=== PATIENT | male | born 1970 | race Caucasian/White ===

== ENCOUNTER 2024-01-02 18:32 | Inpatient (IN) | payer MEDICARE, MEDICAID, SELFPAY ==
[2024-01-02] VITALS (47 sets, daily range): BP systolic 83–120; BP diastolic 50–75; PULSE 78–150; RESP 7–22; TEMP 36–37.1; O2SAT 96–100
--- NOTE | 2024-01-02 18:30 | RT.EKG_ITS ---
APPROVED REPORT Exam: Resting ECG Reason for Exam: Sick Patient Location: E HR:142 bpm ECG Measurements Heart Rate 142 AXIS WV 121 P 75 QRSd 94 QRS 92 QT 276 T 16 QTc 428 Conclusion Sinus tachycardia...rate> 99 Ventricular premature complex...V complex w/ short R-R interval sinus tachycardia, normal axis, normal intervals
[2024-01-02] MEDS: Lactated Ringers 1,000 ML 1000 ML IV ×2 (19:02→21:14)
[2024-01-02 19:09] LABS: BE (Venous) -4 mmol/L (-2-3); HCO3 (Venous) 19 mmol/L (23-28); O2 Sat (Venous) 64 %; TCO2 (Venous) 19 mmol/L (24-29); pCO2 (Venous) 27 mmHg (41-51); pH (Venous) 7.47 (7.31-7.41); pO2 (Venous) 36 mmHg
[2024-01-02 19:11] LABS: Abs Immature Grans 0.11 10^3/uL (0.0-0.06); HCT 26.6 % (40.0-50.0); HGB 7.3 g/dL (13.5-17.5); MCH 24.6 pg (27.0-33.0); MCHC 27.4 % (32.0-36.0); MCV 90 fL (80-95); MPV 10.1 fL (8.0-11.0); Platelet Count 241 10^3/uL (130-400); RBC 2.97 10^6/uL (4.36-5.78); RDW 21.1 % (11.8-14.1); RDW-SD 68.6 fL; WBC 13.32 10^3/uL (4.4-10.8)
[2024-01-02 19:12] LABS: Lactate 3.8 mmol/L (0.6-1.4)
[2024-01-02] MEDS: CEFEPIME 2 GM in Normal Saline 100 ML IVPB ×2 (19:15→23:23)
[2024-01-02] MEDS: ACETAMINOPHEN 1,000 MG/100 ML BTL 400 MG IVPB (19:20)
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
[2024-01-02 19:24] LABS: INR 1.5 (0.9-1.1); Prothrombin Time 14.3 sec (9.1-11.1)
[2024-01-02 19:29] LABS: Absolute Lymphocyte Count 0.53 10^3/uL (1.2-3.4); Absolute Monocyte Count 0.53 10^3/uL (0.1-0.8); Absolute Neutrophil Count 12.25 10^3/uL (1.2-6.7)
[2024-01-02 19:30] LABS: Anisocytosis 2+; Diff Comment Manual Differential; Hypochromasia 2+
[2024-01-02 19:33] LABS: ALT 8 U/L (16-63); AST 15 U/L (15-37); Albumin 1.5 g/dL (3.4-5.0); Alkaline Phosphatase 130 U/L (46-116); Anion Gap 14.7 mmol/L (3-11); BUN 23 mg/dL (7-18); CO2 19.3 mmol/L (21.0-32.0); CREATININE 0.9 mg/dL (0.70-1.30); Calcium 9.2 mg/dL (8.5-10.1); Chloride 96 mmol/L (98-107); Estimated GFR 101.49 (mL/min/1.73m2); Glucose 131 mg/dL (74-106); Lipase 17 U/L (16-77); Potassium 4.7 mmol/L (3.5-5.1); Sodium 130 mmol/L (136-145); Total Protein 7.6 g/dL (6.4-8.2)
--- NOTE | 2024-01-02 19:34 | DI.RAD_ITS ---
Exam(s) XR PORTABLE CHEST AP EXAM: XR PORTABLE CHEST AP CLINICAL HISTORY: hypotension, tachycardia. TECHNIQUE: 2D digital imaging was performed. COMPARISON: No exams were available for comparison FINDINGS: Single AP portable view. Heart size is upper normal. The mediastinum is not widened. Lungs are clear. No infiltrates nor obvious pleural effusions. IMPRESSION: No acute pulmonary findings on this single AP portable view of the chest. DATA REPOSITORY: RADIATION DOSE DELIVERED:
[2024-01-02] MEDS: VANCOMYCIN 1,500 MG in Normal Saline 250 ML 166.6666 MG IVPB (19:38)
--- NOTE | 2024-01-02 19:54 | DI.VRAD_ITS ---
PROCEDURE INFORMATION: Exam: XR Chest Exam date and time: 01/02/2024 7:30 PM Age: 53 years old Clinical indication: Other: Hypotension, tachycardia TECHNIQUE: Imaging protocol: Radiologic exam of the chest. Views: 1 view. COMPARISON: No relevant prior studies available. FINDINGS: Lungs: No pulmonary consolidation is seen. Pleural spaces: No pleural effusion or pneumothorax is demonstrated. Heart/Mediastinum: The heart appears normal in size. Bones/joints: The visualized bony structures appear grossly intact, as seen. IMPRESSION: No active disease is seen in the chest. Dictated and Authenticated by: Da Medrano MD. Ordering:DEION Guajardo MD
--- NOTE | 2024-01-02 20:28 | NUR.NOTE ---
Nursing Note: 1644: took over care of pt. pt moved to rm 2. Pt alert and oriented x 4. Pt states he is 5/10 generalized pain. Pt has escar with different stages of ulcerization to L buttock with mediplex on it. Pt has wound vac that extends down into the pelvic structure draining serous sagious fluid. Patient's perirectal area is maserated. Pt has 2 spontaneous fractured hips. Started 2 IV bilateral arms sergei BCs and labs. Started fluids and abx along with tylenol. Pt self caths about every 2 hours. Placed temp sensing cath no output at time of placement. Pt son's at bedside.
--- NOTE | 2024-01-02 20:36 | NUR.NOTE ---
Nursing Note: pt refused covid/flu/influenza testing
--- NOTE | 2024-01-02 21:00 | NUR.NOTE ---
Nursing Note: son primary caregiver Richard [phone] Son Venu [phone]
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
[2024-01-02 22:27] LABS: Bilirubin Large (Negative); Blood Negative (Negative); Clarity Sl Cloudy (Clear); Glucose Negative (Negative); Ketones 15 mg/dL (Negative); Leukocyte Esterase Negative (Negative); Nitrite Negative (Negative); Urobilinogen 0.2 mg/dL (Up to 0.2); pH 5.5 (5-8)
[2024-01-02] MEDS: Pantoprazole 40 MG VIAL IVP (22:29)
--- NOTE | 2024-01-02 22:31 | NUR.NOTE ---
Nursing Note: got urine output for the first5 time at 2222. collected 15 cc and sent to lab. increased blood product rate from 75 cc/hr to 200 cc/hr at 2224
[2024-01-02 22:35] LABS: Bacteria Few HPF (Negative); C & S Indicated? No; Casts Negative LPF (Negative); Crystals Negative HPF (Negative); Epithelial Cells Moderate HPF (Negative); Mucus Negative (Negative); RBC 0-2 HPF (0-2); WBC Negative HPF (0-5)
[2024-01-02] MEDS: Normal Saline 1,000 ML 150 ML IV (23:14)
[2024-01-03] VITALS (13 sets, daily range): BP systolic 90–118; BP diastolic 56–71; PULSE 64–80; RESP 14–18; TEMP 36–36.7; O2SAT 98–100
[2024-01-03] MEDS: Normal Saline 1,000 ML 150 ML IV (06:22)
[2024-01-03 07:00] LABS: HCT 27.3 % (40.0-50.0); HGB 8.3 g/dL (13.5-17.5); MCHC 30.4 % (32.0-36.0); MCV 89 fL (80-95); MPV 10.4 fL (8.0-11.0); Platelet Count 187 10^3/uL (130-400); RBC 3.07 10^6/uL (4.36-5.78); RDW 17.6 % (11.8-14.1); RDW-SD 55.1 fL; WBC 7.64 10^3/uL (4.4-10.8)
[2024-01-03 07:08] LABS: INR 1.4 (0.9-1.1); Prothrombin Time 13.9 sec (9.1-11.1)
[2024-01-03 07:20] LABS: ALT 7 U/L (16-63); AST 11 U/L (15-37); Albumin 1.1 g/dL (3.4-5.0); Alkaline Phosphatase 96 U/L (46-116); Anion Gap 9.6 mmol/L (3-11); BUN 21 mg/dL (7-18); Bilirubin, Total 0.56 mg/dL (0.2-1.0); CO2 22.4 mmol/L (21.0-32.0); CREATININE 0.5 mg/dL (0.70-1.30); Calcium 7.8 mg/dL (8.5-10.1); Chloride 104 mmol/L (98-107); Estimated GFR 121.21 (mL/min/1.73m2); Glucose 104 mg/dL (74-106); Magnesium 1.8 mg/dL (1.8-2.4); Potassium 3.8 mmol/L (3.5-5.1); Sodium 136 mmol/L (136-145); Total Protein 5.5 g/dL (6.4-8.2)
[2024-01-03 07:38] LABS: Lab Add On Test DONE
[2024-01-03 07:51] LABS: Iron 22 ug/dL (65-175); Total Iron Binding Capacity 198 ug/dL (250-450); Transferrin Sat 11 % (20-55)
[2024-01-03] MEDS: CEFEPIME 2 GM in Normal Saline 100 ML IVPB ×2 (08:25→16:47)
[2024-01-03] MEDS: Oxybutynin 5 MG TAB PO (08:27)
[2024-01-03 08:37] LABS: Ferritin 1679 ng/mL (26-388)
[2024-01-03 08:45] LABS: C-Reactive Protein 24.65 mg/dL (<or=0.5)
--- NOTE | 2024-01-03 09:00 | DI.RAD_ITS ---
Exam(s) XR HIP PELVIS ADULT BL EXAM: XR HIP PELVIS ADULT BL CLINICAL HISTORY: Recent fractured hips nonoperative and paraplegia. TECHNIQUE: 2D digital imaging was performed. COMPARISON: No exams were available for comparison FINDINGS: 3 views There are chronic appearing bilateral displaced femoral head fractures. On the right side the femurs displaced cranially adjacent to the right iliac wing. There is no visib le femoral neck. The uppermost aspect of the right femoral head is present and within the acetabulum . On the left side there is also cephalad dislocation/displacement of the intertrochanteric femur with absence of the femoral neck and lower half of the left femoral head, similar to the opposite side. T he remaining aspect of the upper left femoral head remains within the acetabulum, similar to the oppo site side. The left pubic rami appear intact. The right inferior pubic ramus is not visualized and may be lytic Cecy involved such as with osteomyelitis. There does appear to be gas within the soft tissues of the right buttock. Catheter is noted in the urinary bladder. IMPRESSION: Chronic hip findings as above. However, there are also findings in the lower right pelvis including gas in the soft tissues as well as nonvisualization-probable lytic involvement of the right ischial t uberosity and inferior pubic ramus. Most probably related to osteomyelitis. First read by [facility]. Final report called by myself to the hospitalist 01/03/2024 2:20 p.m. DATA REPOSITORY: RADIATION DOSE DELIVERED:
--- NOTE | 2024-01-03 10:25 | DI.VRAD_ITS ---
PROCEDURE INFORMATION: Exam: XR Right Hip Exam date and time: 01/03/2024 9:54 AM Age: 53 years old Clinical indication: Injury or trauma; Other: Recent fractured hips nonoperative and paraplegic TECHNIQUE: Imaging protocol: Radiologic exam of the right hip. Views: 2 or 3 views hip with pelvis when performed. COMPARISON: No relevant prior studies available. FINDINGS: Tubes, catheters and devices: Tube in the bladder Bones/joints: Chronic appearing displaced femoral head fractures bilaterally. . The proximal right femur is displaced cranially and is adjacent to the right iliac wing. The left proximal femur is also displaced cranially and is no longer in alignment with the remaining fracture fragment of the left femoral head. There are lucencies in the proximal femur that could indicate osteomyelitis. Soft tissues: Unremarkable. IMPRESSION: 1. Chronic appearing displaced femoral head fractures bilaterally. . 2. The proximal right femur is displaced cranially and is adjacent to the right iliac wing. The left proximal femur is also displaced cranially and is no longer in alignment with the remaining fracture fragment of the left femoral head. 3. There are lucencies in the proximal femur that could indicate osteomyelitis. Dictated and Authenticated by: Kandi Adams MD. Ordering:DIOGENES Amado MD
[2024-01-03] MEDS: Normal Saline Flush 10 ML SYR IVP ×3 (10:44→20:13)
--- NOTE | 2024-01-03 11:42 | PHA.REVIEW2 ---
Pharmacy Admission Review Admission Clinical Review Admission Pharmacy Review: Acute anemia (Acute) Lactic acid acidosis (Acute) Cellulitis and abscess of buttock (Acute) No Known Allergies Allergy (Unverified 01/02/24 21:01) Resuscitation Status DNR/DNI Height 5 ft 10 in Weight 57.5 kg Comments Comments/Follow Ups: Watch for vancomycin level and adjust dose as needed, cultures pending Pharmacy Admission Review Renal Dosing Renal Dosing: BUN 21 mg/dL (7-18) H 01/03/24 06:00 Creatinine 0.5 mg/dL (0.70-1.30) L 01/03/24 06:00 Medications needing adjustments: Reviewed (CrCl 137 mL/min) List of meds needing interventions: Current medications are okay Anticoagulation Anticoagulation: Hgb 8.3 g/dL (13.5-17.5) L 01/03/24 06:00 Hct 27.3 % (40.0-50.0) L 01/03/24 06:00 Plt Count 187 10^3/uL (130-400) 01/03/24 06:00 INR 1.4 (0.9-1.1) H 01/03/24 06:00 Creatinine 0.5 mg/dL (0.70-1.30) L 01/03/24 06:00 DVT Prophylaxis: Reviewed (INR decreased from 1.5, Hgb increased from 7.3) Medications: Enoxaparin (40mg daily) Relevant Labs Relevant Labs: Sodium 136 mmol/L (136-145) 01/03/24 06:00 Potassium 3.8 mmol/L (3.5-5.1) 01/03/24 06:00 Chloride 104 mmol/L (98-107) 01/03/24 06:00 Magnesium 1.8 mg/dL (1.8-2.4) 01/03/24 06:00 C-Reactive Protein 24.65 mg/dL (<or=0.5) H 01/02/24 19:05 Electrolytes, C-Reactive P, ESR: Reviewed (Na increased from 130) Cardiac Review Cardiac Review: Blood Pressure 90/56 1124 Blood Pressure 101/69 0750 Blood Pressure 107/71 0539 Blood Pressure 105/64 0455 Blood Pressure 100/65 0355 Blood Pressure 108/66 0255 BP, HR, EF%: Reviewed (HR WNL) List meds needing interventions: Patient is no currently on any cardiac medications QTc Review QTc: Reviewed (428 from 01/02/24) IV to PO Switch IV Medications: Reviewed (cefepime and vancomycin) Home Meds Home Med List reviewed: Intervened Relevent Home Meds Not ordered & why?: Nursing called this morning as patient reported that he takes his baclofen and gabapentin at bedtime. Orders and home med list were updated. Called nursing regarding oxybutynin, prescription from Rx history shows it is taken twice daily. Nursing confirmed with patient that he takes it once daily. Current Meds Current Medication Order Review: Intervened Comments: Changed vancomycin order to premix bag Pharmacy Antibiotic Review Relevant Labs: Relevant Labs 01/02/24 19:05 C-Reactive Protein 24.65 H WBC 7.64 10^3/uL (4.4-10.8) 01/03/24 06:00 Temperature 36.3 C Temperature 36.3 C Temperature 36.4 C Temperature 36.2 C Temperature 36.3 C Temperature 36.4 C Pharmacy Antibiotic Activity: C/S review and Reviewed, no change Comments: Patient is on cefepime and vancomycin, day 1, for cellulitis. Current vancomycin dose is 750mg q12h with predicted AUC of 473 and trough of 14.8, over night pharmacy put in level for today at 1600. Order was retimed this morning due to patient having been down at imaging. Did not change the timing of the level as it is still within appropriate range for a random draw. Will adjust dose as needed based on level. Patient had recently been treated for osteomyelitis per morning meeting. Blood cultures are pending and per provider order will be put in for wound culture as well. WBC decreased from 13.32. Comments Comments/Follow Ups: Watch for vancomycin level and adjust dose as needed, cultures pending
[2024-01-03] MEDS: VANCOMYCIN/WATER (PEG) 750 MG/150 ML BAG 150 MG IVPB (12:31)
--- NOTE | 2024-01-03 13:08 | PDOC.CMIN ---
Date of service: 01/03/24 Time of Service: 13:08 Care Management Initial Assmt Initial Assessment Reason for Hospitalization: Cellulitis and abscess of buttock, Acute anemia, Lactic acid acidosis Functional Status/Living Situation Patient Presentation: Noman was awake and lying in bed when CM met with him. He is accomplanied by his Sons Richard and Venu. Town of Residence: [place] Resides with: Alone Significant Other/Family: Local Caregiver/Guardian: Son Richard, lives next door and is his primary caregiver Natural Supports: O/E VNA services M,W,F, has nursing for wound care Employment Status: Disabled Instrumental Activities of Daily Living (ADLs): Requires support Medications Medication Management: No Issues/Barriers identified Physical Functioning/Mobility Assistive Device: Wheelchair Ramp Wound vac Home is handicapped assessable Advance Directives Advance Directives: Do you have an Advance Directive: AD On File at [facility]: Date Asked AD Date Reviewed COLST On File at [facility] COLST Date Scanned Comment: Not on file, patient reported to this specifications writer that he wishes to be a DNR/DNI Code Status Resuscitation Status DNR/DNI Portal Pt does not currently have a portal and education provided: Yes Insurance Coverage/Financial Issues Insurance: Medicaid Financial Issues: None identified Care Team Visit Care Team Role Provider Type Unknown Unknown Primary Care Provider STAFF PHYSICIAN Bennett Ramirez MD Emergency Provider [facility] STAFF PHYSICIAN Aneudy Lynn Admit Provider NON-[facility] STAFF PHYSICIAN Attending Provider Discharge Potential Discharge Needs: PCP F/U Appt Anticipated Barriers to Discharge: Medical Status Patient/Family Education Needs: Review discharge instructions, discuss Ask Me Three Transportation: Private vehicle Plan: Close monitoring and treatment with IV abx, cultures pending, wound consult is ordered. Palliative consult pending, pt wants to learn more about assisted suicide. Anticipate, Noman will discharge home via private vehicle with son. He will follow up with community providers and his discharge plan of care as instructed. Noman is planning on resuming o/e VNA services and supports. CM will follow. PFSH All Active Problems (Updated 01/03/24 @ 15:31 by Gianni Austin) Paraplegia (Acute) Bacteremia due to Gram-negative bacteria (Acute) DVT prophylaxis (Acute) Bilateral closed hip fractures (Chronic) Acute anemia (Acute) Lactic acid acidosis (Acute) Cellulitis and abscess of buttock (Acute) Sepsis (Acute) Decubitus ulcer (Chronic) Anemia (Chronic) Hypovolemia (Acute) Social History Smoking/Tobacco Use Status: Former Tobacco Use Smoking risk assessment performed?: Yes Alcohol Intake: never Housing: house Do you feel safe at home: Yes Do you feel safe in your relationship?: Yes SDOH(Care Management) Screening Will the Patient Participate in the Screening?: Yes Do you worry about having a steady place to live?: yes Problems where you live: no known problems In the past 12 months, have you had to go without electric, gas, oil or water in your home?: yes Have you or anyone in your house had to go without enough food to eat?: no Has lack of transportation kept you from medical appointments or from doing things needed for daily living?: yes Has anyone in your support network made you feel unsafe for any reason?: no Health Related Social Needs Health related social needs: housing instability, housed, with risk of homelessness(Z59.811), transportation insecurity(Z59.82) and material hardship(utilities)(Z59.87)
--- NOTE | 2024-01-03 15:10 | W.PM.PROGNOT ---
Date of Service Date of service: 01/03/24 Time of Service: 15:10 Assessment and Plan Assessment and plan (1) Cellulitis and abscess of buttock: Start date: 01/02/24 Status: Acute Assessment and plan: In setting of longstanding paraplegia, has struggled with deep wounds since bilateral fractured hips with sepsis and decompensation at the end of 2022, treatment for morganella osteomyelitis earlier in 2023. Wounds go down to the bones, this and x-ray results and CRP are all c/w osteomyelitis. - Wound VAC in place, wound consult pending. - GNR growing in blood, stop vancomycin and continue cefepime with C&S pending. (2) Bacteremia due to Gram-negative bacteria: Status: Acute Assessment and plan: As above, on cefepime. Wound the likely source. (3) Acute anemia: Start date: 01/02/24 Status: Acute Assessment and plan: Acute on chronic, with [place] 10 [place] [facility] [place] Only recent bleeding was in the wound, nothing currently. Certainly there is an element of anemia of chronic disease with high ferritin and low TIBC, but transferrin saturation also low c/w low iron as well. He may benefift from IV iron infusion. Consider surgical consultation for GI endoscopies if blood counts continue to drop. (4) Lactic acid acidosis: Start date: 01/02/24 Status: Acute Assessment and plan: Likely dehyrdation and bacteremia, though he didn't meet sepsis criteria with normal vital signs. AG closed and clinically improved so I don't think we need to repeat lactate. (5) Decubitus ulcer: Status: Chronic Assessment and plan: Chronic decubitus ulcer right buttock with wound VAC at this time as above. Wound care consulted. Nutrition help may also be useful to promote healing. Qualifiers: Pressure injury location: contiguous region involving back and buttock Pressure injury stage: stage 4 Laterality: right Qualified Code(s): L89.44 - Pressure ulcer of contiguous site of back, buttock and hip, stage 4 (6) Bilateral closed hip fractures: Status: Chronic Assessment and plan: Patient has history of hip fractures which are nonoperative. No change. He has [place] [facility] [place]. Qualifiers: Encounter type: subsequent encounter Fracture healing: with delayed healing Qualified Code(s): S72.001G - Fracture of unspecified part of neck of right femur, subsequent encounter for closed fracture with delayed healing; S72.002G - Fracture of unspecified part of neck of left femur, subsequent encounter for closed fracture with delayed healing (7) Paraplegia: Status: Acute Assessment and plan: on baclofen, gabapentin for spasticity. (8) DVT prophylaxis: Status: Acute Assessment and plan: LMWH Subjective Subjective Patient reports: feels better; denies nausea, vomiting, shortness of breath or fever Interval history since last seen: Feeling much better. Starting to eat some. Has more energy. Exam Narrative Exam Narrative: General: Alert and oriented x 4, thin, speech normal and fluid, in no acute distress. Lungs: Clear to auscultation with normal effort. Heart: Regular rate and rhythm with no murmurs or gallops appreciated. Abdomen: +BS, soft and nontender to palpation with no palpable hepatosplenomegaly. Extremities: Without clubbing, cyanosis or pitting edema. Wound vac not taken down. Objective Last Vital Signs Temp 36.3 C L 01/03/24 11:24 Pulse 77 01/03/24 11:24 Resp 17 01/03/24 11:24 BP 90/56 L 01/03/24 11:24 Pulse Ox 99 01/03/24 11:24 Laboratory Results - last 24 hr 01/02/24 01/02/24 01/02/24 19:05 19:21 19:52 WBC 13.32 H RBC 2.97 L Hgb 7.3 L Hct 26.6 L MCV 90 MCH 24.6 L MCHC 27.4 L RDW 21.1 H Plt Count 241 MPV 10.1 Immature Gran % 0.0 Neutrophils % 92.0 Lymphocytes % 4.0 Monocytes % 4.0 Eosinophils % 0.0 Basophils % 0.0 Nucleated RBC % 0.0 Absolute Neutrophils 12.25 H Absolute Lymphocytes 0.53 L Absolute Monocytes 0.53 Absolute Eosinophils 0.00 Absolute Basophils 0.00 RBC Morphology See Below Hypochromasia 2+ Anisocytosis 2+ PT 14.3 H INR 1.5 H APTT 30.0 VBG pH 7.47 H VBG pCO2 27 L VBG pO2 36 VBG HCO3 19 L VBG Total CO2 19 L VBG O2 Saturation 64 VBG Base Excess -4 L VBG Lactate 3.8 H* Sodium 130 L Potassium 4.7 Chloride 96 L Carbon Dioxide 19.3 L Anion Gap 14.7 H BUN 23 H Creatinine 0.9 Est GFR (CKD-EPI 2020) 101.49 Glucose 131 H Calcium 9.2 Magnesium 2.0 Iron 22 L TIBC 198 L Transferrin % Sat 11 L Ferritin 1679 H Total Bilirubin 0.40 AST 15 ALT 8 L Alkaline Phosphatase 130 H C-Reactive Protein 24.65 H Total Protein 7.6 Albumin 1.5 L Lipase 17 Vitamin B12 Folate Urine Color Urine Clarity Urine pH Ur Specific [place] Urine Protein Urine Ketones Urine Blood Urine Nitrite Urine Bilirubin Urine Urobilinogen Ur Leukocyte Esterase Urine RBC Urine WBC Ur Epithelial Cells Urine Crystals Urine Bacteria Urine Casts Urine Mucus Ur Culture Indicated? Urine Glucose Random Vancomycin Add-On Test Request ABO/Rh B Positive Blood Type Recheck B Positive Antibody Screen NEGATIVE Crossmatch See Detail 01/02/24 01/03/24 01/03/24 22:22 06:00 06:01 WBC 7.64 RBC 3.07 L Hgb 8.3 L Hct 27.3 L MCV 89 MCH 27.0 MCHC 30.4 L D RDW 17.6 H Plt Count 187 MPV 10.4 Immature Gran % Neutrophils % Lymphocytes % Monocytes % Eosinophils % Basophils % Nucleated RBC % Absolute Neutrophils Absolute Lymphocytes Absolute Monocytes Absolute Eosinophils Absolute Basophils RBC Morphology Hypochromasia Anisocytosis PT 13.9 H INR 1.4 H APTT VBG pH VBG pCO2 VBG pO2 VBG HCO3 VBG Total CO2 VBG O2 Saturation VBG Base Excess VBG Lactate Sodium 136 Potassium 3.8 Chloride 104 Carbon Dioxide 22.4 Anion Gap 9.6 BUN 21 H Creatinine 0.5 L Est GFR (CKD-EPI 2020) 121.21 Glucose 104 Calcium 7.8 L Magnesium 1.8 Iron Cancelled TIBC Transferrin % Sat Ferritin Cancelled Total Bilirubin 0.56 AST 11 L ALT 7 L Alkaline Phosphatase 96 C-Reactive Protein Total Protein 5.5 L Albumin 1.1 L Lipase Vitamin B12 Cancelled Folate Cancelled Urine Color Dark Yellow Urine Clarity Sl Cloudy Urine pH 5.5 Ur Specific [place] 1.020 Urine Protein 30 H Urine Ketones 15 H Urine Blood Negative Urine Nitrite Negative Urine Bilirubin Large H Urine Urobilinogen 0.2 Ur Leukocyte Esterase Negative Urine RBC 0-2 Urine WBC Negative Ur Epithelial Cells Moderate Urine Crystals Negative Urine Bacteria Few Urine Casts Negative Urine Mucus Negative Ur Culture Indicated? No Urine Glucose Negative Random Vancomycin Add-On Test Request ABO/Rh Blood Type Recheck Antibody Screen Crossmatch 01/03/24 01/03/24 07:20 16:00 WBC RBC Hgb Hct MCV MCH MCHC RDW Plt Count MPV Immature Gran % Neutrophils % Lymphocytes % Monocytes % Eosinophils % Basophils % Nucleated RBC % Absolute Neutrophils Absolute Lymphocytes Absolute Monocytes Absolute Eosinophils Absolute Basophils RBC Morphology Hypochromasia Anisocytosis PT INR APTT VBG pH VBG pCO2 VBG pO2 VBG HCO3 VBG Total CO2 VBG O2 Saturation VBG Base Excess VBG Lactate Sodium Potassium Chloride Carbon Dioxide Anion Gap BUN Creatinine Est GFR (CKD-EPI 2020) Glucose Calcium Magnesium Iron TIBC Transferrin % Sat Ferritin Total Bilirubin AST ALT Alkaline Phosphatase C-Reactive Protein Total Protein Albumin Lipase Vitamin B12 Folate Urine Color Urine Clarity Urine pH Ur Specific [place] Urine Protein Urine Ketones Urine Blood Urine Nitrite Urine Bilirubin Urine Urobilinogen Ur Leukocyte Esterase Urine RBC Urine WBC Ur Epithelial Cells Urine Crystals Urine Bacteria Urine Casts Urine Mucus Ur Culture Indicated? Urine Glucose Random Vancomycin Cancelled Add-On Test Request DONE ABO/Rh Blood Type Recheck Antibody Screen Crossmatch Time Spent with Patient Time Spent with Patient: >50 minutes Time was spent: preparing to see the patient(eg.review tests), obtaining and/or reviewing separately otained hiistory, ordering medications,tests, procedures, referring, communicating with other health professional healthcare representative, indepentently interpreting results, counseling the patient and care coordination
[2024-01-03] MEDS: Baclofen 10 MG TAB PO (20:13)
[2024-01-03] MEDS: Gabapentin 400 MG CAP PO (20:13)
[2024-01-04 00:13] VITALS: BP 96/48; PULSE 72; RESP 20; TEMP 37.4; O2SAT 99
[2024-01-04] MEDS: CEFEPIME 2 GM in Normal Saline 100 ML IVPB ×4 (00:14→23:58)
[2024-01-04 04:28] VITALS: BP 114/63; PULSE 71; RESP 17; TEMP 36.8; O2SAT 100
[2024-01-04 06:44] LABS: HGB 8.2 g/dL (13.5-17.5); MCH 26.8 pg (27.0-33.0); MCHC 30.4 % (32.0-36.0); MCV 88 fL (80-95); RBC 3.06 10^6/uL (4.36-5.78); RDW 18.3 % (11.8-14.1); RDW-SD 57.5 fL; WBC 9.04 10^3/uL (4.4-10.8)
[2024-01-04 07:12] LABS: Absolute Lymphocyte Count 0.81 10^3/uL (1.2-3.4); Absolute Neutrophil Count 8.23 10^3/uL (1.2-6.7); Bands % 3 %; Diff Comment Manual Differential; Hypochromasia 2+
[2024-01-04 07:13] LABS: Platelet Count 168 10^3/uL (130-400); Polychromasia Present
[2024-01-04 07:25] VITALS: BP 108/61; PULSE 62; RESP 17; TEMP 36.5; O2SAT 99
[2024-01-04 07:30] LABS: Vitamin B12 896 pg/mL (193-986)
[2024-01-04] MEDS: Enoxaparin 40 MG/0.4 ML SYR SC (08:53)
[2024-01-04] MEDS: Oxybutynin 5 MG TAB PO (08:53)
[2024-01-04] MEDS: Normal Saline Flush 10 ML SYR IVP ×2 (08:54→21:55)
[2024-01-04 11:11] VITALS: BP 116/62; PULSE 64; RESP 18; TEMP 36.8; O2SAT 100
--- NOTE | 2024-01-04 12:59 | PGE_ITS ---
Date of Service Date of service: 01/04/24 Time of Service: : Assessment and Plan Assessment and plan (1) Cellulitis and abscess of buttock: Start date: 01/02/24 Status: Acute Assessment and plan: In setting of longstanding paraplegia, has struggled with deep wounds since bilateral fractured hips with sepsis and decompensation at the end of 2022, treatment for morganella osteomyelitis earlier in 2023. Wounds go down to the bones, this and x-ray results and CRP are all c/w osteomyelitis. - Wound VAC in place, wound consult pending. - E. coli and anaerobic GPR in blood. He is on cefepime, which should be good coverage, sensitivities pending. Vancomycin stopped 01/02 as culture not c/w staph. (2) Bacteremia due to Gram-negative bacteria: Status: Acute Assessment and plan: As above, on cefepime. Wound the likely source. (3) Acute anemia: Start date: 01/02/24 Status: Acute Assessment and plan: Acute on chronic, with previous hemoglobin of 10 in October 2023 in [facility] record. Only recent bleeding was in the wound, nothing currently. Now s/w 2 units, h/h stable from 01/02. - Certainly there is an element of anemia of chronic disease with high ferritin and low TIBC, but transferrin saturation also low c/w low iron as well. He may benefift from IV iron infusion but will wait until infection controlled and inflammation improving. Consider surgical consultation for GI endoscopies if blood counts continue to drop. (4) Lactic acid acidosis: Start date: 01/02/24 Status: Acute Assessment and plan: Likely dehyrdation and bacteremia, though he didn't meet sepsis criteria with normal vital signs. AG closed by 01/02 c/w resolution of lactic acidosis. u/o down since stopping IV fluids 01/02, will resume at 100/hr for now. (5) Decubitus ulcer: Status: Chronic Assessment and plan: Chronic decubitus ulcer right buttock with wound VAC at this time as above. Wound care consulted. Nutrition help may also be useful to promote healing, consulted Qualifiers: Pressure injury location: contiguous region involving back and buttock Pressure injury stage: stage 4 Laterality: right Qualified Code(s): L89.44 - Pressure ulcer of contiguous site of back, buttock and hip, stage 4 (6) Paraplegia: Status: Acute Assessment and plan: on baclofen, gabapentin for spasticity. (7) DVT prophylaxis: Status: Acute Assessment and plan: LMWH as no active bleeding noted Subjective Subjective Patient reports: no new complaints and tolerating a regular diet; denies vomiting, shortness of breath or fever Interval history since last seen: Vancomycin stopped after blood culture growing GNR, anaerobic GPR Fluids discontinued He is still feeling a lot better than he was when he came in, but stomach queasy after drinking milk today. No futher bleeding noted. He feels like he needs to have a BM. Exam Narrative Exam Narrative: General: Alert and oriented x 4, thin, speech normal and fluid, in no acute distress. Lungs: Clear to auscultation with normal effort. Heart: Regular rate and rhythm with no murmurs or gallops appreciated. Abdomen: +BS, soft and nontender to palpation with no palpable hepatosplenomegaly. Extremities: Without clubbing, cyanosis or pitting edema. Wound vac not taken down (scheduled to change later in day) Objective Last Vital Signs Temp 36.8 C 01/04/24 11:11 Pulse 64 01/04/24 11:11 Resp 18 01/04/24 11:11 BP 116/62 01/04/24 11:11 Pulse Ox 100 01/04/24 11:11 Laboratory Results - last 24 hr 01/02/24 01/03/24 01/04/24 19:21 16:00 06:15 WBC 9.04 RBC 3.06 L Hgb 8.2 L Hct 27.0 L MCV 88 MCH 26.8 L MCHC 30.4 L RDW 18.3 H Plt Count 168 MPV 10.0 Immature Gran % See Differential Neutrophils % 88.0 Band Neutrophils % 3 Lymphocytes % 9.0 Monocytes % 0.0 Eosinophils % 0.0 Basophils % 0.0 Nucleated RBC % 1.0 H Absolute Neutrophils 8.23 H Absolute Lymphocytes 0.81 L Absolute Monocytes 0.00 L Absolute Eosinophils 0.00 Absolute Basophils 0.00 RBC Morphology See Below Polychromasia Present Hypochromasia 2+ Vitamin B12 896 Random Vancomycin Cancelled Crossmatch See Detail 01/04/24 09:24 WBC Cancelled RBC Cancelled Hgb Cancelled Hct Cancelled MCV Cancelled MCH Cancelled MCHC Cancelled RDW Cancelled Plt Count Cancelled MPV Cancelled Immature Gran % Neutrophils % Band Neutrophils % Lymphocytes % Monocytes % Eosinophils % Basophils % Nucleated RBC % Absolute Neutrophils Absolute Lymphocytes Absolute Monocytes Absolute Eosinophils Absolute Basophils RBC Morphology Polychromasia Hypochromasia Vitamin B12 Random Vancomycin Crossmatch Time Spent with Patient Time Spent with Patient: 35-49 minutes Time was spent: preparing to see the patient(eg.review tests), obtaining and/or reviewing separately otained hiistory, ordering medications,tests, procedures, referring, communicating with other health care transitions nurse, indepentently interpreting results, counseling the patient and care coordination
[2024-01-04 15:18] VITALS: BP 107/65; PULSE 84; RESP 18; TEMP 36.6; O2SAT 98
[2024-01-04 16:28] LABS: Anion Gap 10.3 mmol/L (3-11); BUN 12 mg/dL (7-18); CO2 22.7 mmol/L (21.0-32.0); CREATININE 0.6 mg/dL (0.70-1.30); Calcium 7.9 mg/dL (8.5-10.1); Estimated GFR 114.71 (mL/min/1.73m2); Glucose 125 mg/dL (74-106); Sodium 137 mmol/L (136-145)
[2024-01-04 16:37] LABS: Chloride 104 mmol/L (98-107)
[2024-01-04] MEDS: Potassium Chloride Liquid 20 MEQ PKT 40 MEQ PO (17:52)
[2024-01-04] MEDS: POTASSIUM CHLORIDE/D5-0.45NACL 1,000 ML 75 MEQ IV (18:45)
[2024-01-04 19:27] VITALS: BP 105/58; PULSE 77; RESP 18; TEMP 36.7; O2SAT 98
[2024-01-04] MEDS: Gabapentin 400 MG CAP PO (21:48)
[2024-01-04] MEDS: Baclofen 10 MG TAB PO (21:48)
[2024-01-04] MEDS: Betamethasone Dip. 0.05% CR 15 GM TUBE TP (21:49)
[2024-01-05 01:29] VITALS: BP 101/64; PULSE 73; RESP 18; TEMP 36.5; O2SAT 99
[2024-01-05 06:49] LABS: HCT 25.3 % (40.0-50.0); HGB 7.7 g/dL (13.5-17.5); MCH 26.7 pg (27.0-33.0); MCHC 30.4 % (32.0-36.0); MCV 88 fL (80-95); MPV 10.1 fL (8.0-11.0); Platelet Count 150 10^3/uL (130-400); RBC 2.88 10^6/uL (4.36-5.78); RDW 18.4 % (11.8-14.1); RDW-SD 58.3 fL; WBC 8.96 10^3/uL (4.4-10.8)
[2024-01-05 06:58] LABS: BUN 9 mg/dL (7-18); CREATININE 0.4 mg/dL (0.70-1.30); Calcium 7.8 mg/dL (8.5-10.1); Chloride 103 mmol/L (98-107); Estimated GFR 129.66 (mL/min/1.73m2); Glucose 123 mg/dL (74-106); Potassium 3.5 mmol/L (3.5-5.1); Sodium 135 mmol/L (136-145)
[2024-01-05 07:00] LABS: Magnesium 1.5 mg/dL (1.8-2.4)
[2024-01-05 07:31] VITALS: BP 103/71; PULSE 68; RESP 17; TEMP 36.7; O2SAT 100
[2024-01-05] MEDS: MAGNESIUM SULFATE 2 GM/50 ML BAG IVINF (07:56)
[2024-01-05] MEDS: Oxybutynin 5 MG TAB PO (09:15)
[2024-01-05] MEDS: Normal Saline Flush 10 ML SYR IVP (09:15)
[2024-01-05] MEDS: Enoxaparin 40 MG/0.4 ML SYR SC (09:15)
[2024-01-05] MEDS: Betamethasone Dip. 0.05% CR 15 GM TUBE TP (09:16)
[2024-01-05] MEDS: POTASSIUM CHLORIDE/D5-0.45NACL 1,000 ML 75 MEQ IV (09:25)
[2024-01-05] MEDS: CEFEPIME 2 GM in Normal Saline 100 ML IVPB ×3 (09:27→23:26)
[2024-01-05] MEDS: MAGNESIUM SULFATE 1 GM/100 ML BAG IVINF (10:01)
--- NOTE | 2024-01-05 10:23 | PGE_ITS ---
Date of Service Date of service: 01/05/24 Time of Service: 10:23 Assessment and Plan Assessment and plan (1) Cellulitis and abscess of buttock: Start date: 01/02/24 Status: Acute Assessment and plan: In setting of longstanding paraplegia, has struggled with deep wounds since bilateral fractured hips with sepsis and decompensation at the end of 2022, treatment for morganella osteomyelitis earlier in 2023. Wounds go down to the bones, this and x-ray results and CRP are all c/w osteomyelitis. - Wound VAC in place, wound consult pending. - pansenstive E. coli in one culture, two GNR and anaerobic GPR in blood in other. He is on cefepime, which should be good coverage, will wait to narrow until we get a species second GNR and GPR. Vancomycin stopped 01/02 as culture not c/w staph. (2) Bacteremia due to Gram-negative bacteria: Status: Acute Assessment and plan: As above, on cefepime. Wound the likely source. (3) Acute anemia: Start date: 01/02/24 Status: Acute Assessment and plan: Acute on chronic, with previous hemoglobin of 10 in October 2023 in [facility] [place] record. Only recent bleeding was in the wound, nothing currently. Now s/w 2 units, h/h stable from 01/02. - Certainly there is an element of anemia of chronic disease with high ferritin and low TIBC, but transferrin saturation also low c/w low iron as well. He may benefift from IV iron infusion but will wait until infection controlled and inflammation improving. -Consider surgical consultation for GI endoscopies if blood counts continue to drop, not indicated at this point. (4) Lactic acid acidosis: Start date: 01/02/24 Status: Acute Assessment and plan: Likely dehyrdation and bacteremia, though he didn't meet sepsis criteria with normal vital signs. AG closed by 01/02 c/w resolution of lactic acidosis. u/o down after stopping IV fluids 01/02, will resumed at 75/hr with potassium for now. Now that eating and drinking more he should do fine without fluids. (5) Hypokalemia: Status: Acute Assessment and plan: replacing in IV fluids as well as replacing magnesium. (6) Decubitus ulcer: Status: Chronic Assessment and plan: Chronic decubitus ulcer right buttock with wound VAC at this time as above. Wound care consulted. He declined care yesterday but states he will do today. Nutrition help may also be useful to promote healing, consulted Qualifiers: Pressure injury location: contiguous region involving back and buttock Pressure injury stage: stage 4 Laterality: right Qualified Code(s): L89.44 - Pressure ulcer of contiguous site of back, buttock and hip, stage 4 (7) Paraplegia: Status: Acute Assessment and plan: on baclofen, gabapentin for spasticity. (8) Hand dermatitis: Status: Acute Assessment and plan: This is new for him, looks allergic or irritant. He is responding to high potency steroid and emollient. Avoid irritants. (9) Adjustment disorder with disturbance of emotion: Status: Acute Assessment and plan: He was visibly depressed 01/03, also inquired with RN about medical aid in dying. He feels much better today, but is still struggling with accepting his medical condition and dependance on others. We discussed his goals for the future. I don't think he needs medication for now but would benefit from palliative care. (10) DVT prophylaxis: Status: Acute Assessment and plan: LMWH as no active bleeding noted Subjective Subjective Patient reports: feels better, tolerating a regular diet and no bowel movement; denies nausea, vomiting, shortness of breath or fever Interval history since last seen: Noman states he feels much better today. Appetite is better and eating a full breakfast. He was feeling depressed yesterday and declined wound care. He feels more positive today. He thinks he can start strait cathing again. He appreciates the care but doesn't feel good about being dependant on others. Exam Narrative Exam Narrative: General: Alert and oriented x 4, thin, speech normal and fluid, in no acute distress. Lungs: Clear to auscultation with normal effort. Heart: Regular rate and rhythm with no murmurs or gallops appreciated. Abdomen: +BS, soft and nontender to palpation with no palpable hepatosplenomegaly. Extremities: Without clubbing, cyanosis or pitting edema. Wound vac not taken down (scheduled to change later in day) Objective Last Vital Signs Temp 36.7 C 01/05/24 07:31 Pulse 68 01/05/24 07:31 Resp 17 01/05/24 07:31 BP 103/71 01/05/24 07:31 Pulse Ox 100 01/05/24 07:31 Laboratory Results - last 24 hr 01/04/24 01/04/24 01/05/24 09:24 16:11 06:12 WBC Cancelled 8.96 RBC Cancelled 2.88 L Hgb Cancelled 7.7 L Hct Cancelled 25.3 L MCV Cancelled 88 MCH Cancelled 26.7 L MCHC Cancelled 30.4 L RDW Cancelled 18.4 H Plt Count Cancelled 150 MPV Cancelled 10.1 Sodium 137 135 L Potassium 3.0 L 3.5 Chloride 104 103 Carbon Dioxide 22.7 21.0 Anion Gap 10.3 11.0 BUN 12 9 Creatinine 0.6 L 0.4 L Est GFR (CKD-EPI 2020) 114.71 129.66 Glucose 125 H 123 H Calcium 7.9 L 7.8 L Magnesium 1.5 L Time Spent with Patient Time Spent with Patient: 35-49 minutes Time was spent: preparing to see the patient(eg.review tests), obtaining and/or reviewing separately otained hiistory, ordering medications,tests, procedures, referring, communicating with other health child care aide, indepentently interpreting results, counseling the patient and care coordination
[2024-01-05 11:11] VITALS: BP 105/57; PULSE 77; RESP 18; TEMP 36.5; O2SAT 100
[2024-01-05 15:18] VITALS: BP 100/60; PULSE 77; RESP 18; TEMP 36.8; O2SAT 100
[2024-01-05 19:40] VITALS: BP 100/64; PULSE 81; RESP 18; TEMP 37.2; O2SAT 99
[2024-01-05] MEDS: Baclofen 10 MG TAB PO (20:26)
[2024-01-05] MEDS: Gabapentin 400 MG CAP PO (20:26)
[2024-01-05 23:33] VITALS: BP 102/63; PULSE 83; RESP 18; TEMP 36; O2SAT 99
[2024-01-06] MEDS: POTASSIUM CHLORIDE/D5-0.45NACL 1,000 ML 75 MEQ IV (00:15)
[2024-01-06 04:05] VITALS: BP 105/67; PULSE 74; RESP 18; TEMP 37; O2SAT 99
[2024-01-06 07:23] VITALS: BP 105/70; PULSE 75; RESP 15; TEMP 37.4; O2SAT 100
[2024-01-06 07:33] LABS: HCT 28.5 % (40.0-50.0); HGB 8.5 g/dL (13.5-17.5); MCH 26.8 pg (27.0-33.0); MCHC 29.8 % (32.0-36.0); MCV 90 fL (80-95); MPV 9.9 fL (8.0-11.0); Platelet Count 168 10^3/uL (130-400); RBC 3.17 10^6/uL (4.36-5.78); RDW 18.3 % (11.8-14.1); RDW-SD 59.1 fL; WBC 10.34 10^3/uL (4.4-10.8)
[2024-01-06 07:38] LABS: Anion Gap 7.1 mmol/L (3-11); BUN 7 mg/dL (7-18); CO2 25.9 mmol/L (21.0-32.0); CREATININE 0.4 mg/dL (0.70-1.30); Calcium 7.7 mg/dL (8.5-10.1); Chloride 102 mmol/L (98-107); Estimated GFR 129.66 (mL/min/1.73m2); Glucose 112 mg/dL (74-106); Magnesium 1.7 mg/dL (1.8-2.4); Sodium 135 mmol/L (136-145)
--- NOTE | 2024-01-06 08:21 | W.PM.PROGNOT ---
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 coli on blood culture, though waiting for final culture results as there is gram positive romel on inital culture -currently on cefepime, will continue (2) Cellulitis and abscess of buttock: Start date: 01/02/24 Status: Acute Assessment and plan: -as noted above (3) Bacteremia due to Gram-negative bacteria: Status: Acute Assessment and plan: -as noted above (4) Acute anemia: Start date: 01/02/24 Status: Acute Assessment and plan: -Acute on chronic, with previous hemoglobin of 10 in October 2023 in [facility] [place] -Only recent bleeding was in the wound, nothing currently. Now s/w 2 units, h/h stable from 01/02. -element of anemia of chronic disease with high ferritin and low TIBC, but transferrin saturation also low c/w low iron as well. -He may benefift from IV iron infusion,. but would set up as outpatient -Hb 8.5 on AM 9/3 (5) Lactic acid acidosis: Start date: 01/02/24 Status: Acute Assessment and plan: -secondary to severe sepsis as noted above (6) Hypokalemia: Status: Acute Assessment and plan: -s/p replacement -K 5 on AM 9/3 (7) Decubitus ulcer: Status: Chronic Assessment and plan: -Chronic decubitus ulcer right buttock with wound VAC at this time as above. -Wound care consulted. -Nutrition help may also be useful to promote healing, consulted Qualifiers: Laterality: right Pressure injury location: contiguous region involving back and buttock Pressure injury stage: stage 4 Qualified Code(s): L89.44 - Pressure ulcer of contiguous site of back, buttock and hip, stage 4 (8) Paraplegia: Status: Acute Assessment and plan: -on baclofen, gabapentin for spasticity. (9) Hand dermatitis: Status: Acute Assessment and plan: -This is new for him, looks allergic or irritant. He is responding to high potency steroid and emollient. Avoid irritants. (10) Adjustment disorder with disturbance of emotion: Status: Acute Assessment and plan: -He was visibly depressed 01/03, also inquired with RN about medical aid in dying. -He feels much better over the last few days, but is still struggling with accepting his medical condition and dependance on others. -previous physician discussed his goals for the future. -I don't think he needs medication for now but would benefit from palliative care. (11) DVT prophylaxis: Status: Acute Assessment and plan: -LMWH as no active bleeding noted Subjective Subjective Interval history since last seen: Patient states that he is feeling much better today and is pretty much back to his baseline. He understands the plan to wait for final culture results before determining an appropriate antibiotic regimen for discharge. Exam Narrative Exam Narrative: well appearing gentleman sitting up in the bed in no acute distress, AOx4, heart RRR, lungs CTAB, abdomen soft, non-tender, non-distended, wound vac in place Objective Last Vital Signs Temp 99.3 F 01/06/24 07:23 Pulse 75 01/06/24 07:23 Resp 15 01/06/24 07:23 BP 105/70 01/06/24 07:23 Pulse Ox 100 01/06/24 07:23 Laboratory Results - last 24 hr 01/06/24 05:55 WBC 10.34 RBC 3.17 L Hgb 8.5 L Hct 28.5 L MCV 90 MCH 26.8 L MCHC 29.8 L RDW 18.3 H Plt Count 168 MPV 9.9 Sodium 135 L Potassium 5.0 D Chloride 102 Carbon Dioxide 25.9 Anion Gap 7.1 BUN 7 Creatinine 0.4 L Est GFR (CKD-EPI 2020) 129.66 Glucose 112 H Calcium 7.7 L Magnesium 1.7 L Time Spent with Patient Time Spent with Patient: >50 minutes Time was spent: preparing to see the patient(eg.review tests), obtaining and/or reviewing separately otained hiistory, ordering medications,tests, procedures, referring, communicating with other health child care leader, indepentently interpreting results, counseling the patient and care coordination
[2024-01-06] MEDS: Oxybutynin 5 MG TAB PO (09:02)
[2024-01-06] MEDS: Normal Saline Flush 10 ML SYR IVP ×3 (09:02→20:03)
[2024-01-06] MEDS: Enoxaparin 40 MG/0.4 ML SYR SC (09:02)
[2024-01-06] MEDS: CEFEPIME 2 GM in Normal Saline 100 ML IVPB ×3 (09:03→23:49)
[2024-01-06] MEDS: Betamethasone Dip. 0.05% CR 15 GM TUBE TP ×2 (09:10→20:02)
--- NOTE | 2024-01-06 10:08 | CMPROGNOTE_ITS ---
Date of service: 01/06/24 Time of Service: 10:08 Care Management Progress Note Progress Note Text Progress Note Text: Noman was sitting up in bed when CM met with him. He had just had a wound consult which took 2 hours and was not inclined to have a long conversation. During the discussion, Noman stated that he feels like he is in skilled nursing here. When asked to explain he stated that he is not allowed to leave the building and go outside and cant even open the window. He repeatedly stated that he has done nothing wrong and should not be treated like a prisoner. Noman informed CM that he just really wants to go home. He feels best when in his own home and hates being in the hospital. Discharge Potential Discharge Needs: PCP F/U Appt Anticipated Barriers to Discharge: Medical Status Patient/Family Education Needs: Review discharge instructions, discuss Ask Me Three Transportation: Private vehicle Plan: Anticipate, Noman will discharge home via private vehicle with son when medically clleared. He will follow up with community providers and his discharge plan of care as instructed. Noman is planning on resuming o/e VNA services and supports. CM will follow and continue to assess for discharge needs.. SDOH(Care Management) Screening Will the Patient Participate in the Screening?: Yes Do you worry about having a steady place to live?: yes Problems where you live: no known problems In the past 12 months, have you had to go without electric, gas, oil or water in your home?: yes Have you or anyone in your house had to go without enough food to eat?: no Has lack of transportation kept you from medical appointments or from doing things needed for daily living?: yes Has anyone in your support network made you feel unsafe for any reason?: no Health Related Social Needs Health related social needs: housing instability, housed, with risk of homelessness(Z59.811), transportation insecurity(Z59.82) and material hardship(utilities)(Z59.87) Anticipated HH Services Anticipated HH Services at Discharge VNA (OE [facility]NA nursinf M-W- for wound care) Resumption (as above).
--- NOTE | 2024-01-06 10:24 | TELEFU_ITS ---
Date of service: 01/06/24 Time of Service: 10:00 Nutrition Note NOTE: Received nutrition consult regarding pt's non-healing decubitus ulcers and nutrition status. Pt is 53yo male admitted with severe sepsis and non-healing decubitus ulcers to sacral/glut area. Pt reports poor po intake with no/low po intake reported over the last 2 weeks prior to admission. Pt estimates ~25lb weight loss over the last 6 months - no weight history to review in chart - just two weights taken on 01/01 which there is a 7kg difference between. Pt current BMI congruent with underweight. He reports usual body weight of 170-175lbs and is currently around 126lbs per documented weight 01/02/24. 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 Noman says family has been pushing good food at hime but lost his appetite as he began feeling significantly worse over the last few weeks. We discussed his high nutrition needs for kcals and protein and micronutrients for healing. He reports improvements in appetite over his admission. Upper body NFPE performed with findings of mild SQ body fat losses noted in orbital, triceps, buccal area and axillary midline. Moderate muscle loss noted in clavicular, temporalis areas, milk muscle loss to deltoid. Estimated energy needs: 1723-2012kcals (30-35kcal/kg), 69-86g protein (1.2- 1.5g/kg), minimum of 2012mL fluid (1mL p[er required kcal) with additional fluids to replace losses from wound exudate. Nutrition Dx: Moderate malnutrition (E44.0) in the context of chronic condition worsened by acute illness/sepsis related to meeting <75% of estimated energy requirement for >7 days, reported body weight loss of 25lbs over the last 6 months (which would be a 16.5% loss of body weight) coupled with the above-noted [id number] losses in SQ fat and lean muscle. Will relay to [facility] staff that higher kcal/protein food choices should be encouraged when placing meal orders. To supplement his diet would recommend: -1oz liquid protein TID -220mg Zinc Sulfate daily -10,000IU vitamin D (250ug) daily -10,000IU vitamin A daily -Bcomplex daily -continued iron supplementation In addition will trial Wil ONS for wound healing 1-3x per day per patient acceptance/tolerance. and Boost ONS at Dinner meal. Will monitor pt's po intake, toleration of supplements/ONS and lab changes pertaining to nutrition status. Time Spent in Nutritional Counseling and Treatment: 15 minutes
[2024-01-06 11:11] VITALS: BP 96/57; PULSE 83; RESP 15; TEMP 36.8; O2SAT 99
[2024-01-06] MEDS: Collagenase 30 GM TUBE TP (16:30)
[2024-01-06 19:53] VITALS: BP 93/67; PULSE 92; RESP 15; TEMP 36.9; O2SAT 98
[2024-01-06] MEDS: Baclofen 10 MG TAB PO (20:02)
[2024-01-06] MEDS: Gabapentin 400 MG CAP PO (20:02)
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
[2024-01-06 23:37] VITALS: BP 111/68; PULSE 90; RESP 18; TEMP 36.6; O2SAT 97
[2024-01-07 03:33] VITALS: BP 99/66; PULSE 82; RESP 18; TEMP 36.8; O2SAT 99
[2024-01-07 07:30] VITALS: BP 109/63; PULSE 69; RESP 18; TEMP 36.6; O2SAT 99
[2024-01-07] MEDS: CEFEPIME 2 GM in Normal Saline 100 ML IVPB (07:43)
[2024-01-07] MEDS: Oxybutynin 5 MG TAB PO (07:43)
[2024-01-07] MEDS: Betamethasone Dip. 0.05% CR 15 GM TUBE TP (07:44)
[2024-01-07] MEDS: Normal Saline Flush 10 ML SYR IVP (07:44)
[2024-01-07] MEDS: Collagenase 30 GM TUBE TP (07:44)
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
--- NOTE | 2024-01-07 11:16 | DSE_ITS ---
Date of service: 01/07/24 Time of Service: 13:01 DS: Diagnosis Discharge Diagnosis (1) Severe sepsis: Status: Acute Asessment and Plan: -patient met criteria for severe sepsis on admission with HR 150, WBC 13, lactic acid of 3.8, and source of infection being cellulitis/abscess of buttock in setting of longstanding paraplegia -patient has history of morganella osteo in early 2023 -hip/pelvis xray shows signs consistent with osteo of the right ichial tuberosity and inferior pubic ramus -wound vac in place, wound consult pending -carrizales sens e. coli and morgenella, had been on cefepeime but is being discharged with order to have PICC line placed and daily 2g CTX IV at [facility] (2) Cellulitis and abscess of buttock: Status: Acute Asessment and Plan: -as noted above -not surgical candidate at this time -patient to keep outpatient appointments with [facility] Wound Care, Ortho, and Plastics for tomorrow, 01/08/2024 (3) Bacteremia due to Gram-negative bacteria: Status: Acute Asessment and Plan: -as noted above (4) Acute anemia: Status: Acute Asessment and Plan: -Acute on chronic, with previous hemoglobin of 10 in October 2023 in [facility] record. -Only recent bleeding was in the wound, nothing currently. Now s/w 2 units, h/h stable from 01/02. -element of anemia of chronic disease with high ferritin and low TIBC, but transferrin saturation also low c/w low iron as well. -He may benefift from IV iron infusion,. but would set up as outpatient -Hb 8.5 on AM 01/05 (5) Lactic acid acidosis: Status: Acute Asessment and Plan: -secondary to severe sepsis as noted above (6) Hypokalemia: Status: Acute (7) Decubitus ulcer: Status: Chronic Asessment and Plan: -Chronic decubitus ulcer right buttock with wound VAC at this time as above. (8) Paraplegia: Status: Acute (9) Hand dermatitis: Status: Acute (10) Adjustment disorder with disturbance of emotion: Status: Acute (11) DVT prophylaxis: Status: Acute Discharge Plan Disposition Patient Disposition: Home Condition: Good Discharge Details Reason For Visit: Cellulitis,Acute Anemia, Lactic Acidosis Admit Date/Time: 01/02/24 22:13 Admit Provider: Aneudy Lynn Attending Provider: Aneudy Lynn Primary Care Provider: Unknown,Unknown Hospital Course Hospital Course: Patient initially presented with signs and symptoms consistent with severe sepsis secondary to cellulitis and abscess of the buttock and osteomyelitis of right ischial tuberosity and inferior pubic ramus. These are due to a known chronic poorly healing wound that the patient has appointments to see wound care, orthopedic surgery and plastic surgery at [facility] on 01/08/2024. During hospitalization. Patient's sepsis pathology resolved and his blood cultures ultimately grew E. coli and Morganella, both sensitive to ceftriaxone. At discharge patient is being set up to have outpatient infusion of 2 g ceftriaxone daily for 6 weeks. Given the patient has safe antibiotic regimen, and close follow-up with aforementioned subspecialist, it was determined that he was stable for discharge home. Home Meds and New Rx's Prescriptions: Continued gabapentin 400 mg capsule 400 mg PO HS baclofen 10 mg tablet 10 mg PO HS No Action oxybutynin chloride 5 mg tablet 5 mg PO DAILY Discharge Instructions Activity:: Activity as Tolerated Equipment/Supplies:: No Equipment Needed Diet:: As Tolerated Discharge Orders Discharge Orders: Discharge Order (Routine); Ordered 01/07/24 Ordered By: Jonathan Mcdowell DS: Summary Time Spent with Patient providing and/or coordinating discharge services: Greater than 30 minutes Status at Discharge Functional status at discharge: independent ambulation Overall status at discharge: patient is back to baseline Mental Status: mental status grossly normal Speech and Movement: speech and movement normal Mood: congruent mood Affect: normal affect Quality:SDOH Health Related Social Needs: Health related social needs risk of homeless, transpo insecurity, material hardship Referrals and interventions: kids help - live across driveway Exam Narrative Exam Narrative: well appearing gentleman sitting up in the bed in no acute distress, AOx4, heart RRR, lungs CTAB, abdomen soft, non-tender, non-distended, wound vac in place Psych Mental Status: mental status grossly normal Speech and Movement: speech and movement normal Mood: congruent mood Affect: normal affect DS: Data Vitals/I&O Vitals and I&O: Vital Signs Temperature 97.9 F 01/07/24 07:30 Temperature Source Temporal Artery Scan 01/07/24 07:30 Pulse 69 01/07/24 07:30 Pulse Rhythm Regular 01/05/24 23:30 Pulse 86 01/02/24 22:25 Respiratory Rate 18 01/07/24 07:30 Respiratory Effort Normal, Non-Labored 01/05/24 23:30 Respiratory Depth Normal 01/05/24 23:30 Respiratory Pattern Normal 01/05/24 23:30 Blood Pressure 109/63 01/07/24 07:30 Blood Pressure Mean 84 01/02/24 22:25 Blood Pressure Position Sitting 01/02/24 18:38 Pulse Oximetry 99 01/07/24 07:30 Oxygen Delivery Method Room Air 01/07/24 08:00 Oxygen Flow Rate 0 01/07/24 08:00 Pain Level 5 01/07/24 07:30 Comment general body aches 01/02/24 20:13 Intake & Output 01/06/24 01/07/24 01/07/24 17:59 05:59 17:59 Intake Total 1590 / 1590 440 / 2030 590 / 590 Output Total 1175 / 1175 450 / 1625 850 / 850 Balance 415 / 415 -10 / 405 -260 / -260 Intake: IV 1110 / 1110 200 / 1310 110 / 110 Oral 480 / 480 240 / 720 480 / 480 Output: Urine 1175 / 1175 450 / 1625 850 / 850 Other: Urine Color Light Cathleen Dark Cathleen Light Cathleen Urine Appearance Clear Clear Data Completed and Pending Labs on day of discharge: Preliminary micro results at discharge 01/05/24 15:00 Blood Culture - Preliminary Blood NO GROWTH 24 HOURS 01/05/24 15:00 Blood Culture - Preliminary Blood NO GROWTH 24 HOURS 01/02/24 19:05 Blood Culture - Preliminary Blood Escherichia coli Morganella morgani ssp morgani Anaerobic gram positive romel PFSH All Active Problems (Updated 01/07/24 @ 12:50 by Christa Vergara NP) Unintentional weight loss of 10% body weight within 6 months (Acute) ACP (advance care planning) (Acute) Severe sepsis (Acute) Hand dermatitis (Acute) Hypokalemia (Acute) Adjustment disorder with disturbance of emotion (Acute) Paraplegia (Acute) Bacteremia due to Gram-negative bacteria (Acute) DVT prophylaxis (Acute) Bilateral closed hip fractures (Chronic) Acute anemia (Acute) Lactic acid acidosis (Acute) Cellulitis and abscess of buttock (Acute) Sepsis (Acute) Decubitus ulcer (Chronic) Anemia (Chronic) Hypovolemia (Acute) Surgical History S/P excisional debridement sacral and ischial History of back surgery Social History Smoking/Tobacco Use Status: Former Tobacco Use Smoking risk assessment performed?: Yes Alcohol Intake: never Housing: house Do you feel safe at home: Yes Do you feel safe in your relationship?: Yes Time Spent with Patient Time Spent with Patient: <45 minutes Time was spent: preparing to see the patient(eg.review tests), obtaining and/or reviewing separately otained hiistory, ordering medications,tests, procedures, referring, communicating with other health day care home provider, indepentently interpreting results, counseling the patient and care coordination
[2024-01-07 11:52] VITALS: BP 112/61; PULSE 83; RESP 18; TEMP 37.3; O2SAT 99
--- NOTE | 2024-01-07 12:10 | PDOC.CMDIS ---
Date of service: 01/07/24 Time of Service: 12:10 Care Management Discharge Plan Reason for Hospitalization: Severe Sepsis Discharge Plan: Noman is discharged home with resumption of O/E VNA services. Outpatient IV ABX with PICC line insertion is coordinated at [facility]; starting tomorrow at 8am. Noman is planning to follow up with [facility] tomorrow afternoon, as previously scheduled. He is driven home via private vehicle with his son. Patient/Family Education Needs: Review discharge instructions, limitations, medications and plan to follow up with community providers. Discuss ask me three. Services Needed at Discharge: Home Health Care Services (Resumption of O/E VNA services) and Outpatient Therapy (IV ABX and PICC Line Insertion, coordinated by CM) SDOH Health Related Social Needs: Health related social needs risk of homeless, transpo insecurity, material hardship Health related social needs: housing instability, housed, with risk of homelessness(Z59.811), transportation insecurity(Z59.82) and material hardship(utilities)(Z59.87) Referrals and interventions: kids help - live across driveway
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
== END 2024-01-07 14:34 | disposition home or self-care (01) | DRG 871 ==
LOC: ER 22:15 → MS 22:48
PROVIDERS: Family Medicine; Admitting Provider Family Medicine; Emergency Provider Emergency Medicine; Visit Provider Family Medicine
DX: A41.9 Sepsis, unspecified organism (principal); L89.153 Pressure ulcer of sacral region, stage 3; L89.44 Pressure ulcer of contiguous site of back, buttock and hip, stage 4; L02.31 Cutaneous abscess of buttock; E87.20 Acidosis, unspecified; G82.20 Paraplegia, unspecified; Z68.1 Body mass index [BMI] 19.9 or less, adult; M86.8X5 Other osteomyelitis, thigh; L03.317 Cellulitis of buttock; R65.20 Severe sepsis without septic shock; E86.0 Dehydration; D64.9 Anemia, unspecified; E87.6 Hypokalemia; L30.9 Dermatitis, unspecified; F43.29 Adjustment disorder with other symptoms; R63.4 Abnormal weight loss; Z99.3 Dependence on wheelchair; L89.892 Pressure ulcer of other site, stage 2; S72.092 Other fracture of head and neck of left femur; S72.091 Other fracture of head and neck of right femur; X58.XXXD Exposure to other specified factors, subsequent encounter; Z66 Do not resuscitate; B96.20 Unspecified Escherichia coli [E. coli] as the cause of diseases classified elsewhere; B96.89 Other specified bacterial agents as the cause of diseases classified elsewhere
CPT/HCPCS: 00123; 36410; 36415; 36430; 51702; 73521; 80048; 80053; 82805; 83690; 85027; 86850; 86900; 86901; 86920; 87040; 87077; 93005; 96361; 96365; 96375; 99222; 99285; J1650; 71045; 80202; 81003; 81015; 82607; 82728; 82746; 83540; 83550; 83605; 83735; 85025; 85610; 85730; 86140; 87186; 93010; 99223; 99232; 99233; 99238; J0131; J0692; J2470; J3370; J3372; J3475; P9016